=== PATIENT | female | born 1995 | race African-American/Black ===

== ENCOUNTER 2023-12-22 18:03 | Observation (INO) ==
--- NOTE | 2023-12-22 18:17 | ED Triage Note ---
Date of Service December 22, 2023 Provider in Triage Author: Martha Toure History of Present Illness This patient was briefly evaluated while in triage. An abbreviated physical exam was performed. This patient is a 28-year-old Female who presents to the ED for evaluation of fevers and general illness for the past 1.5 weeks. Has not really eating or drinking much. Feels like she is still very dehydrated and very fatigued with headache. Was recently in the ER with low potassium, but blood work otherwise negative. Lyme screening negative. Biofire negative. Group A strep negative. CXR negative. EKG and troponin negative. She did not fill her script for potassium supplement. Physical Exam GENERAL: Non-toxic and in no acute distress. HEENT: Pupils equal. No obvious scleral icterus. HEART: Regular rate and rhythm. LUNGS: Clear to auscultation. No accessory muscle use. ABDOMEN: Soft, minimal tenderness. NEURO: Alert and oriented. No obvious neurological deficits on quick neuro exam. Initial orders for labs and / or imaging were placed and patient was placed in the waiting area until a bed is available. Please see further documentation for the full ED course. MDM / Impression Impression Impression: Febrile illness, Elevated troponin, Tachycardia
[2023-12-22] MEDS: SODIUM CHLORIDE 0.9% 1,000 ML IV ONE (19:15)
[2023-12-22 19:38] LABS: Basophils # (auto) 0.03 K/uL (0.00-0.20); Basophils % (auto) 0.6 %; Hematocrit (blood only) 42.5 % (37.0-47.0); Hemoglobin 14.4 g/dl (12.0-16.0); Immature Granulocytes # (auto) 0.03 K/uL (0.01-0.20); Immature Granulocytes % (auto) 0.6 %; Lymphocytes # (auto) 1.01 K/uL (1.20-3.40); Lymphocytes % (auto) 18.7 %; Mean Corpuscular Hgb Conc 33.9 g/dL (32.0-36.0); Mean Corpuscular Volume 85.5 fL (80.0-100.0); Mean Platelet Volume 11.1 fL (9.4-12.4); Monocytes # (auto) 0.38 K/uL (0.11-0.59); Monocytes % (auto) 7.1 %; Neutrophils # (auto) 3.94 K/uL (1.40-6.50); Platelet Count 180 K/uL (130-400); RDW Coefficient of Variation 12.9 % (11.5-14.5); RDW Standard Deviation 39.8 fL (36.4-46.3); Red Blood Count 4.97 M/uL (4.20-5.40); White Blood Count 5.39 K/ul (4.8-10.8)
--- NOTE | 2023-12-22 19:41 | CT Scan Report ---
CT OF THE HEAD WITHOUT CONTRAST CLINICAL HISTORY: Headache, fatigue. COMPARISON STUDY: No previous studies for comparison. CT DOSE: 1100.35 mGy.cm TECHNIQUE: Helical axial images of the head were obtained without IV contrast. Automated exposure con trol was utilized for the study. A dose lowering technique was utilized adhering to the principles o f ALARA. FINDINGS: No acute intracranial hemorrhage, midline shift or mass effect is present. The ventricular system is unremarkable. The basal cisterns are patent. No extra-axial collections are present. There are no findings to suggest acute dural sinus thrombosis or acute territorial infarct. No significant calvarial abnormalities are present. IMPRESSION: No acute intracranial findings. ACT 112: Negative or not required by law. Electronically signed by: Donn Rahman M.D. 12/22/2023 7:39 PM
[2023-12-22 19:44] LABS: Appearance Urine Clear (Clear); Bacteria Urine Automated None Seen (None Seen); Bilirubin Urine Negative (Negative); Blood Urine Negative (Negative); Cast Urine Automated 0-2 /lpf (0-2); Color Urine Yellow; Epithelial Cell Urine Auto 0-2 /hpf (0-2); Glucose Urine UA Negative (Negative); Ketones Urine Negative (Negative); Leukocyte Esterase Urine Negative (Negative); Nitrite Urine Negative (Negative); Protein Urine Trace (Negative); RBC Urine Automated 0-2 /hpf (0-2); Specific Gravity Urine 1.017 (1.000-1.030); Urobilinogen Urine Negative (Negative); WBC Urine Automated 0-5 /hpf (0-5)
[2023-12-22 19:54] LABS: Alanine Aminotransferase 36 U/L (7-52); Albumin Globulin Ratio 1.3 (0.9-2); Albumin Level 4.5 gm/dl (3.4-5.0); Alkaline Phosphatase 80 U/L (34-104); Anion Gap 8 (3-11); Aspartate Aminotransferase 39 U/L (13-39); BUN Creatinine Ratio 7.4 (10-20); Bilirubin,Total 1.1 mg/dl (0.2-1.0); Blood Urea Nitrogen 8 mg/dl (6-23); Carbon Dioxide 29 mmol/L (21-32); Chloride 99 mmol/L (98-107); Est GFR (African American) 80.9 ml/min; Est GFR (Non-African American) 69.8 ml/min; Globulin 3.6 gm/dl (2.5-4.0); Glucose 96 mg/dl (70-99(Fasting)); Monotest Negative (Negative); Potassium 2.9 mmol/L (3.5-5.1); Pregnancy Test, Serum Negative (Negative); Sodium 136 mmol/L (136-145); Total Protein 8.1 gm/dl (6.0-8.3)
[2023-12-22 20:08] LABS: Thyroid Stimulating Hormone 2.276 uIu/ml (0.300-4.500)
--- NOTE | 2023-12-22 21:03 | Emergency Department Note ---
Impression & Plan Febrile illness, Elevated troponin, Tachycardia ED Provider Note CHIEF COMPLAINT: Illness HISTORY OF PRESENTING ILLNESS: This patient is a 28-year-old Female who presents to the ED for evaluation of fevers and general illness for the past 1.5 weeks. Has not really eating or drinking much, but has been trying to drink pedialyte. Feels like she is still very dehydrated and very fatigued with headache. The headache is in the right front of her head. Has some intermittent abdominal pain with nausea, but no vomiting. Not really coughing and denies sore throat or other URI symptoms. Has some intermittent chest pain, but not really short of breath. Denies urinary symptoms or problems with her BMs. Has not been bit by any ticks. No abnormal rashes or skin lesions. She denies any IV drug use. No known ill contacts, but she was recently at a conference in [facility]. Childhood immunizations are up to date. Had 2 COVID vaccines and had her flu vaccine this year. She was seen in the ER in the head pastry chef of 12/21/2023 with similar symptoms and had a low potassium, but blood work otherwise negative. Procalcitonin normal. Lyme screening negative. Biofire negative. Group A strep negative. CXR negative. EKG and troponin negative. She did not fill her script for potassium supplement. REVIEW OF SYSTEMS: See HPI for pertinent positives and pertinent negatives. ALLERGIES: NKDA MEDICATIONS: Sertraline 100 mg QHS, HCTZ 25 mg QD, Zyrtec or Claritin prn PAST MEDICAL HISTORY: Anxiety, depression, HTN, Allergic Rhinitis. Denies past surgical history. PHYSICAL EXAM: Vital Signs: Vitals are noted on the nurse's note and reviewed by myself. GENERAL: Non toxic in appearance and in no acute distress. SKIN: No obvious abnormal rashes or skin lesions. Capillary reflex less than 2 seconds. HEAD: Normocephalic, atraumatic. EARS: Bilateral external auditory canals clear without tragus tenderness. Bilateral tympanic membranes pearly hodgson without erythema or effusion. No mastoid tenderness bilaterally. EYES: Pupils equal round and reactive to light and accommodation. Conjunctivae without injection, sclerae without icterus. Extraocular movements intact. NOSE: Patent, turbinates inflamed with no discharge. Mild right frontal sinus tenderness. MOUTH: Mucous membranes moist. Airway patent, uvula midline. Pharynx is not erythematous and not edematous without exudate. Pharynx without postnasal drip. No evidence for peritonsillar abscess. NECK: Supple without nuchal rigidity. No lymphadenopathy. Negative Kernig and Brudzinski. HEART: Regular rate and rhythm without murmurs gallops or rubs. LUNGS: Clear to auscultation bilaterally without wheezes, rales or rhonchi. No accessory muscle use or retractions. ABDOMEN: Positive bowel sounds x 4. Normal tympanic percussion. Soft, mild diffuse tenderness to palpation. No masses or organomegaly. NEURO: Patient was alert and oriented. DIFFERENTIAL DIAGNOSIS: Differential diagnosis includes Influenza, RSV, COVID, viral syndrome, otitis media, otitis externa, pharyngitis, strep throat, pneumonia, meningitis, urinary tract infection, cellulitis, abscess, sepsis, bacteremia, acute intra-abdominal etiology, tickborne illness, dehydration, hypokalemia, other electrolyte abnormality, cardiac etiology, as well as other pathologies. ED COURSE AND MEDICAL DECISION MAKING: MONITOR: Continuous nuclear monitoring technician: Order was placed for continuous nuclear monitoring technician. Patient was placed on the nuclear monitoring technician and continuous pulse ox. Patient was noted to be in sinus tachycardia at an initial rate of 118 bpm per my interpretation. EKG: EKG was interpreted by myself as sinus tachycardia at 111 bpm with no acute ST or T wave changes and no significant change from her previous EKG. MEDICATIONS GIVEN: 1 L normal saline solution bolus. Tylenol 1000 mg IV. Potassium K rider and potassium chloride 40 mill equivalents p.o. INTERPRETATION OF LABS: I interpreted the labs with full lab results as below in the lab section of this note. White blood cell count is still normal at 5.39. Hemoglobin normal at 14.4. Platelet count normal at 180. Potassium decreased from 3.1 down to 2.9. Total bilirubin 1.1. Remainder of CMP was unremarkable. Magnesium was normal. TSH was normal. Serum hCG negative. High-sensitivity troponin was initially 21.8 with repeat high-sensitivity troponin of 20.0. Her high-sensitivity troponin the other day was 4.0. Urinalysis without evidence for UTI. Anaplasma Babesia smear negative with DNA PCR still pending. Monoscreen negative. INTERPRETATION OF IMAGING: Imaging studies were interpreted by myself and read by radiology as per the imaging section of this note. CT scan of the head without contrast was negative for acute intracranial abnormalities. CTA of the chest with IV contrast was negative for PE, pneumonia, or other acute abnormalities. CT scan of the abdomen pelvis with IV contrast was negative for acute abnormalities. EXTERNAL RECORDS REVIEWED: I reviewed the patient's ER visit from 12/21/2023 as summarized above. CONSULTATIONS: On-call hospitalist MDM SUMMARY: The patient was seen during a time of extreme volume and extreme acuity. Nursing triage protocols were initiated with IV lock, labs, and/or imaging studies conducted by protocol in the triage area. The patient was initially evaluated in a triage room and sub-waiting room and then re-examined once they were taken back to an exam room. The patient was seen in the emergency department on 12/21/2023 with an extensive workup of her symptoms. The patient had a potassium 3.1, but workup as summarized above was otherwise negative. The patient was given a prescription for potassium supplement, but she states she did not fill it yet. The patient presents today for continued and worsening symptoms. The patient was febrile at 37.6 C. She continued to be tachycardic even after the fever resolved. However, the tachycardia did improve. The patient's potassium is now down to 2.9 and she was given a K rider and oral potassium supplement. The patient's high-sensitivity troponin was normal on 12/21/2023, but is elevated to 21.8 with repeat of 20.0 today. EKG without acute abnormalities. Remainder of the laboratory studies today without acute abnormalities. CT scans of the head without contrast as well as CTA of the chest and CT scan of the abdomen and pelvis with IV contrast were negative for acute abnormalities. Tickborne testing is still pending. The etiology of the patient's fever, tachycardia, and symptoms is uncertain at this time. However, there is concern for possible myocarditis, endocarditis, or pericarditis given her newly elevated troponin, fever, tachycardia, and intermittent chest pain. I had a meaningful discussion about this patient with Dr. Crabtree who agrees with my assessment and the treatment plan. We feel the patient requires admission for further evaluation and treatment of her symptoms. I spoke with the on-call hospitalist who agreed to admit the patient for further management. Please refer to their dictation for further details. The patient's care was transferred in stable condition. DIAGNOSIS: Febrile illness Elevated troponin Tachycardia Past Med/Surg History Family History Mother Breast cancer Aunt Breast cancer Family/Other Breast cancer Grandfather (Paternal) No problems noted. Grandfather (Maternal) Prostate cancer Sister Eczema Denies family history of Ovarian cancer Myocardial infarction Colorectal cancer Social History Smoking Status: Never smoker Preferred Language: Peruvian Feels Safe at Home: Yes Allergies Allergies Allergy/AdvReac Type Severity Reaction Status Date / Time No Known Allergies Allergy Verified 12/22/23 23:33 Home Meds Home Medications Medication Instructions Recorded Confirmed hydrochlorothiazide 25 mg tablet 25 mg PO QAM 06/02/23 12/22/23 sertraline 100 mg tablet 100 mg PO HS 06/02/23 12/22/23 cetirizine 10 mg tablet (Zyrtec) 20 mg PO HS 06/17/23 12/22/23 albuterol sulfate 90 mcg/actuation 2 puff inhalation Q6H PRN Wheezing 12/21/23 12/22/23 aerosol inhaler trazodone 50 mg tablet 50 mg PO HS 12/21/23 12/22/23 Results & Data (ED) Vital Signs Vital Signs - 24 hr 12/22/23 18:26 12/22/23 20:45 12/22/23 21:56 Temperature 37.6 C H Temperature Source Temporal Artery Scan Pulse Rate 118 H 116 H Pulse Rate [Finger] 102 H Pulse Rate from SpO2 Sensor 116 H Pulse Rhythm [Finger] Regular Pulse Strength [Finger] Absent Respiratory Rate 18 17 21 Respiratory Effort / Characteristics Non-Labored Spontaneous Non-Labored Spontaneous Respiratory Depth Normal Normal Respiratory Pattern Regular Blood Pressure 170/123 H Blood Pressure [Left Arm] 188/97 H Blood Pressure Mean 138 Blood Pressure Mean [Left Arm] 127 Blood Pressure Position Sitting Blood Pressure Position [Left Arm] Sitting Pulse Oximetry 98 98 100 Oxygen Delivery Method Room Air Room Air Sepsis Recent Fever Within 48 Hours No Sepsis New/Unexplained Change in Mental Status N/A Sepsis Action Taken by Nursing No Action Required 12/22/23 22:00 12/22/23 22:10 12/22/23 22:20 Temperature Temperature Source Pulse Rate 121 H 112 H 106 H Pulse Rate [Finger] Pulse Rate from SpO2 Sensor 123 H 112 H 106 H Pulse Rhythm [Finger] Pulse Strength [Finger] Respiratory Rate 20 22 20 Respiratory Effort / Characteristics Respiratory Depth Respiratory Pattern Blood Pressure Blood Pressure [Left Arm] Blood Pressure Mean Blood Pressure Mean [Left Arm] Blood Pressure Position Blood Pressure Position [Left Arm] Pulse Oximetry 97 99 Oxygen Delivery Method Sepsis Recent Fever Within 48 Hours Sepsis New/Unexplained Change in Mental Status Sepsis Action Taken by Nursing 12/22/23 22:30 12/22/23 22:37 12/22/23 23:07 Temperature 37.3 C Temperature Source Oral Pulse Rate 102 H Pulse Rate [Finger] Pulse Rate from SpO2 Sensor 102 H Pulse Rhythm [Finger] Pulse Strength [Finger] Respiratory Rate 23 Respiratory Effort / Characteristics Non-Labored Respiratory Depth Normal Respiratory Pattern Blood Pressure Blood Pressure [Left Arm] Blood Pressure Mean Blood Pressure Mean [Left Arm] Blood Pressure Position Blood Pressure Position [Left Arm] Pulse Oximetry 99 Oxygen Delivery Method Room Air Sepsis Recent Fever Within 48 Hours Sepsis New/Unexplained Change in Mental Status Sepsis Action Taken by Nursing 12/22/23 23:32 12/22/23 23:34 12/22/23 23:34 Temperature Temperature Source Pulse Rate Pulse Rate [Finger] Pulse Rate from SpO2 Sensor 96 H 95 H Pulse Rhythm [Finger] Pulse Strength [Finger] Respiratory Rate Respiratory Effort / Characteristics Respiratory Depth Respiratory Pattern Blood Pressure 140/92 Blood Pressure [Left Arm] Blood Pressure Mean 101 Blood Pressure Mean [Left Arm] Blood Pressure Position Blood Pressure Position [Left Arm] Pulse Oximetry 97 97 Oxygen Delivery Method Sepsis Recent Fever Within 48 Hours Sepsis New/Unexplained Change in Mental Status Sepsis Action Taken by Nursing Laboratory Data 12/22/23 19:18 12/22/23 19:18 Lab Results 12/22/23 12/22/23 Range/Units 19:18 23:43 WBC 5.39 (4.8-10.8) K/ul RBC 4.97 (4.20-5.40) M/uL Hgb 14.4 (12.0-16.0) g/dl Hct 42.5 (37.0-47.0) % MCV 85.5 (80.0-100.0) fL MCH 29.0 (25.0-34.0) pg MCHC 33.9 (32.0-36.0) g/dL RDW Std Deviation 39.8 (36.4-46.3) fL RDW Coeff of Rita 12.9 (11.5-14.5) % Plt Count 180 (130-400) K/uL MPV 11.1 (9.4-12.4) fL Immature Gran % (Auto) 0.6 % Neut % (Auto) 73.0 % Lymph % (Auto) 18.7 % Harrison % (Auto) 7.1 % Eos % (Auto) 0.0 % Baso % (Auto) 0.6 % Neut # (Auto) 3.94 (1.40-6.50) K/uL Lymph # (Auto) 1.01 L (1.20-3.40) K/uL Harrison # (Auto) 0.38 (0.11-0.59) K/uL Eos # (Auto) 0.00 (0.00-0.50) K/uL Baso # (Auto) 0.03 (0.00-0.20) K/uL Immature Gran # (Auto) 0.03 (0.01-0.20) K/uL Sodium 136 (136-145) mmol/L Potassium 2.9 L (3.5-5.1) mmol/L Chloride 99 (98-107) mmol/L Carbon Dioxide 29 (21-32) mmol/L Anion Gap 8 (3-11) BUN 8 (6-23) mg/dl Creatinine 1.08 (0.6-1.2) mg/dl Est Cr Clr Drug Dosing Not Reportable Est GFR ( Amer) 80.9 ml/min Est GFR (Non-Af Amer) 69.8 ml/min BUN/Creatinine Ratio 7.4 L (10-20) Glucose 96 (70-99(Fasting)) mg/dl Calcium 9.0 (8.6-10.3) mg/dl Magnesium 2.0 (1.7-2.4) mg/dl Total Bilirubin 1.1 H D (0.2-1.0) mg/dl AST 39 (13-39) U/L ALT 36 (7-52) U/L Alkaline Phosphatase 80 (34-104) U/L Troponin I High Sens 21.8 H D 20.0 H (0-14) pg/ml Total Protein 8.1 (6.0-8.3) gm/dl Albumin 4.5 (3.4-5.0) gm/dl Globulin 3.6 (2.5-4.0) gm/dl Albumin/Globulin Ratio 1.3 (0.9-2) TSH 2.276 (0.300-4.500) uIu/ml HCG, Qual Negative (Negative) Urine Color Yellow Urine Appearance Clear (Clear) Urine pH 8.0 H (4.5-7.5) Ur Specific [place] 1.017 (1.000-1.030) Urine Protein Trace H (Negative) Urine Glucose (UA) Negative (Negative) Urine Ketones Negative (Negative) Urine Blood Negative (Negative) Urine Nitrite Negative (Negative) Urine Bilirubin Negative (Negative) Urine Urobilinogen Negative (Negative) Ur Leukocyte Esterase Negative (Negative) Urine WBC (Auto) 0-5 (0-5) /hpf Urine RBC (Auto) 0-2 (0-2) /hpf U Hyaline Cast (Auto) 0-2 (0-2) /lpf U Epithel Cells (Auto) 0-2 (0-2) /hpf Urine Bacteria (Auto) None Seen (None Seen) Anaplasma Smear See Comment Babesia Smear See Comment Monoscreen Negative (Negative) Administered Medications Discontinued Medications Sodium Chloride (Nss) 1,000 mls @ 999 mls/hr IV .Q1H1M ONE Stop: 12/22/23 19:29 Last Infusion: 12/22/23 23:37 Dose: Infused Documented By: Admin: 12/22/23 19:15 Dose: 999 mls/hr Documented By: ZIA Potassium Chloride (K Santi / Wtr) 10 meq in 100 mls @ 100 mls/hr IV ONE ONE Stop: 12/22/23 22:02 Last Infusion: 12/22/23 23:37 Dose: Infused Documented By: Admin: 12/22/23 21:42 Dose: 100 mls/hr Documented By: WHITNEY Acetaminophen (Ofirmev) 1,000 mg in 100 mls @ 400 mls/hr IV NOW STA Stop: 12/22/23 21:28 Last Infusion: 12/22/23 23:37 Dose: Infused Documented By: Admin: 12/22/23 21:42 Dose: 400 mls/hr Documented By: WHITNEY Ioversol (Optiray 320 125ml) 118 ml IV ONCE ONE Stop: 12/22/23 22:50 Last Admin: 12/22/23 22:49 Dose: 118 ml Documented By: SULLY Potassium Chloride (Potassium Chloride Crtab 20 Meq Tabcr) 40 meq PO NOW STA Stop: 12/22/23 21:04 Last Admin: 12/22/23 21:42 Dose: 40 meq Documented By: WHITNEY Imaging Data Radiologist's Impression: Head CT 12/22/23 18:29 CT OF THE HEAD WITHOUT CONTRAST CLINICAL HISTORY: Headache, fatigue. COMPARISON STUDY: No previous studies for comparison. CT DOSE: 1100.35 mGy.cm TECHNIQUE: Helical axial images of the head were obtained without IV contrast. Automated exposure control was utilized for the study. A dose lowering technique was utilized adhering to the principles of ALARA. FINDINGS: No acute intracranial hemorrhage, midline shift or mass effect is present. The ventricular system is unremarkable. The basal cisterns are patent. No extra-axial collections are present. There are no findings to suggest acute dural sinus thrombosis or acute territorial infarct. No significant calvarial abnormalities are present. IMPRESSION: No acute intracranial findings. ACT 112: Negative or not required by law. Electronically signed by: Donn Rahman M.D. 12/22/2023 7:39 PM Abdomen/Pelvis CT 12/22/23 22:23 Exam(s): CT ABDOMEN + PELVIS With Contrast IV Amt: 118 cc opti 320 EXAM: CT Abdomen and Pelvis With Intravenous Contrast CLINICAL HISTORY: Reason for exam: Abdominal pain, fever. TECHNIQUE: Axial computed tomography images of the abdomen and pelvis with intravenous contrast. CTDI is 28.14 mGy and DLP is 1556.11 mGy-cm. Automated exposure control was utilized for the study. A dose lowering technique was utilized adhering to the principles of ALARA. CONTRAST: Patient received 118 cc opti 320 of IV contrast COMPARISON: No relevant prior studies available. FINDINGS: Lung bases: Unremarkable. No mass. No consolidation. ABDOMEN: Liver: Unremarkable. No mass. Gallbladder and bile ducts: Unremarkable. No calcified stones. No ductal dilation. Pancreas: Unremarkable. No mass. No ductal dilation. Spleen: Unremarkable. No splenomegaly. Adrenals: Unremarkable. No mass. Kidneys and ureters: LEFT pelvic kidney. No hydronephrosis. Stomach and bowel: Unremarkable. No obstruction. No mucosal thickening. PELVIS: Appendix: No findings to suggest acute appendicitis. Bladder: Unremarkable. No mass. Reproductive: Unremarkable as visualized. ABDOMEN and PELVIS: Intraperitoneal space: Unremarkable. No free air. No significant fluid collection. Bones/joints: No acute fracture. No dislocation. Soft tissues: Unremarkable. Vasculature: Unremarkable. No abdominal aortic aneurysm. Lymph nodes: Unremarkable. No enlarged lymph nodes. IMPRESSION: No acute findings in the abdomen or pelvis. Electronically signed by: Heladio Sr MD 12/23/23 00:00 AM Chest CTA 12/22/23 22:23 Exam(s): CTA CHEST IV Amt: 118 cc opti 320 EXAM: CT Angiography Chest With Intravenous Contrast CLINICAL HISTORY: Reason for exam: PE. TECHNIQUE: Axial computed tomographic angiography images of the chest with intravenous contrast. CTDI is 28.14 mGy and DLP is 901.78 mGy-cm. Automated exposure control was utilized for the study. A dose lowering technique was utilized adhering to the principles of ALARA. MIP reconstructed images were created and reviewed. COMPARISON: No relevant prior studies available. FINDINGS: Pulmonary arteries: Unremarkable. No pulmonary embolism. Aorta: No acute findings. No thoracic aortic aneurysm. Lungs: Unremarkable. No mass. No consolidation. Pleural space: Unremarkable. No significant effusion. No pneumothorax. Heart: Unremarkable. No cardiomegaly. No significant pericardial effusion. No evidence of RV dysfunction. Bones/joints: No acute fracture. No dislocation. Soft tissues: Unremarkable. Lymph nodes: Unremarkable. No enlarged lymph nodes. IMPRESSION: Normal chest CTA. No pulmonary embolism. Electronically signed by: Heladio Sr MD 12/22/23 23:44 PM Discharge Plan Visit Data Chief Complaint: Illness ED Provider: Rodri Crabtree ED Midlevel Provider: Martha Toure Discharge Problem: Febrile illness, Elevated troponin, Tachycardia Patient Disposition: Admitted As Inpatient Condition: Good Discharge Instructions Interventions: ED Discharge Assessment Last Done: 12/23/23 02:40
[2023-12-22] MEDS: ACETAMINOPHEN 1,000 MG/100 ML VIAL IV STA (21:42)
[2023-12-22] MEDS: POTASSIUM CHLORIDE CRTAB 20 MEQ TABCR PO STA (21:42)
[2023-12-22] MEDS: POTASSIUM CHLORIDE / WTR 10 MEQ/100 ML PLCT IV ONE (21:42)
[2023-12-22 21:50] LABS: Troponin I High Sensitivity 21.8 pg/ml (0-14)
[2023-12-22] MEDS: OPTIRAY 320 125ml IV ONE (22:49)
--- NOTE | 2023-12-22 23:45 | CT Scan Report ---
Exam(s): CTA CHEST IV Amt: 118 cc opti 320 EXAM: CT Angiography Chest With Intravenous Contrast CLINICAL HISTORY: Reason for exam: PE. TECHNIQUE: Axial computed tomographic angiography images of the chest with intravenous contrast. CTDI is 28.14 mGy and DLP is 901.78 mGy-cm. Automated exposure control was utilized for the study. A dose lowering technique was utilized adhering to the principles of ALARA. MIP reconstructed images were created and reviewed. COMPARISON: No relevant prior studies available. FINDINGS: Pulmonary arteries: Unremarkable. No pulmonary embolism. Aorta: No acute findings. No thoracic aortic aneurysm. Lungs: Unremarkable. No mass. No consolidation. Pleural space: Unremarkable. No significant effusion. No pneumothorax. Heart: Unremarkable. No cardiomegaly. No significant pericardial effusion. No evidence of RV dysfunction. Bones/joints: No acute fracture. No dislocation. Soft tissues: Unremarkable. Lymph nodes: Unremarkable. No enlarged lymph nodes. IMPRESSION: Normal chest CTA. No pulmonary embolism. Electronically signed by: Heladio Sr MD 12/22/23 23:44 PM
--- NOTE | 2023-12-23 00:01 | CT Scan Report ---
Exam(s): CT ABDOMEN + PELVIS With Contrast IV Amt: 118 cc opti 320 EXAM: CT Abdomen and Pelvis With Intravenous Contrast CLINICAL HISTORY: Reason for exam: Abdominal pain, fever. TECHNIQUE: Axial computed tomography images of the abdomen and pelvis with intravenous contrast. CTDI is 28.14 mGy and DLP is 1556.11 mGy-cm. Automated exposure control was utilized for the study. A dose lowering technique was utilized adhering to the principles of ALARA. CONTRAST: Patient received 118 cc opti 320 of IV contrast COMPARISON: No relevant prior studies available. FINDINGS: Lung bases: Unremarkable. No mass. No consolidation. ABDOMEN: Liver: Unremarkable. No mass. Gallbladder and bile ducts: Unremarkable. No calcified stones. No ductal dilation. Pancreas: Unremarkable. No mass. No ductal dilation. Spleen: Unremarkable. No splenomegaly. Adrenals: Unremarkable. No mass. Kidneys and ureters: LEFT pelvic kidney. No hydronephrosis. Stomach and bowel: Unremarkable. No obstruction. No mucosal thickening. PELVIS: Appendix: No findings to suggest acute appendicitis. Bladder: Unremarkable. No mass. Reproductive: Unremarkable as visualized. ABDOMEN and PELVIS: Intraperitoneal space: Unremarkable. No free air. No significant fluid collection. Bones/joints: No acute fracture. No dislocation. Soft tissues: Unremarkable. Vasculature: Unremarkable. No abdominal aortic aneurysm. Lymph nodes: Unremarkable. No enlarged lymph nodes. IMPRESSION: No acute findings in the abdomen or pelvis. Electronically signed by: Heladio Sr MD 12/23/23 00:00 AM
--- NOTE | 2023-12-23 01:42 | History & Physical Report ---
Date of Service December 23, 2023 Assessment & Plan (1) Febrile illness: Plan: 28-year-old female with 1-1/2 weeks of generalized illness. Fever, nausea, headache, lightheadedness. Etiology unclear. No obvious infiltrate on chest x- ray, UA does not suggest infection, respiratory bio fire panel as well as Lyme studies are negative. Patient has had a Monospot and strep test which are negative as well. She is hemodynamically stable and nontoxic in appearance. Observation to medical with telemetry Check ESR, CRP, procalcitonin Check EBV titersmay be more accurate in acute illness Await tickborne labs (anaplasmosis and Babesia DNA) Tylenol as needed for pain or fever (2) Elevated troponin: Plan: Patient denies chest pain. She does have a very mild elevation of troponin = 21.8 which is new from her prior ER visit several days ago. No evidence of ischemia on EKG. Telemetry monitoring Trend troponin Check 2D echo (3) Hypokalemia: Plan: Potassium = 2.9. Likely contributing in part to her generalized weakness and fatigue. She denies diarrhea. Reports that she eats a fairly normal diet. She is on hydrochlorothiazide Aggressive potassium repletion Repeat labs in the morning Check urinary potassium level Hold hydrochlorothiazide (4) Hypertension: Plan: Blood pressure mildly elevated at present. Patient on hydrochlorothiazide which may be contributing to her hypokalemia. Hold hydrochlorothiazide for now Monitor blood pressure Would consider discharge on new agent, possibly amlodipine? (5) Depression: Plan: Chronic. Stable. Continue sertraline 100 mg p.o. nightly. Of note, patient recently increased her sertraline dose to 200 mg a day but thought maybe she was experiencing some side effects with his increased dose therefore it was decreased back to 100 mg/day. Patient reports stable moods History of Present Illness Chief Complaint: Febrile illness Primary Care Provider: DO Rivas Lrfidencio Urbano is a pleasant 28 female with history of hypertension pres enting with 1.5 weeks of not feeling well, generalized illness. Last week she developed nausea, lightheadedness and fatigue/malaise. She was having a difficult time staying awake and going about her daily activities. She tried to stay hydrated with water and Gatorade. Her symptoms persisted and she was seen in the ER on 12/21/2023. She had a largely unremarkable workup. Normal CBC with differential, chemistry panel with hyponatremia (K = 3.1), normal troponin at 4. Respiratory bio fire panel and Lyme disease screening negative. Group A strep and Monospot negative. Chest x-ray unremarkable. She was ultimately discharged home. Patient saw her PCP on 12/22/2023 and was noted to have a fever. She was also having significant dizziness, and felt as though she would pass out when she sat up on the table. Her PCP recommended that she come to the emergency room for further evaluation. In the ER, afebrile, tachycardic, adequate oxygenation on room air. Patient overall feeling well during my encounter. She complains of fever, chills and body shakes as well as intermittent headache, occasional abdominal pain/bloating with excess flatulence) as well as 1 episode of diarrhea in the ER. She denies chest pain, palpitations, cough, vomiting, dysuria, sore throat, neck pain, ear pain. No sick contacts. No recent vaccinations or medication changes. She did just return from [place] where she was at a conference, otherwise no travel. Repeat labs today as below show worsening hypokalemia with K = 2.9 as well as mild elevation of troponin to 21.8. Also with mild elevation of T. bili = 1.1 Allergies Allergy/AdvReac Type Severity Reaction Status Date / Time No Known Allergies Allergy Verified 12/22/23 23:33 Home Medications Medication Instructions Recorded Confirmed Type hydrochlorothiazide 25 mg tablet 25 mg PO QAM 06/02/23 12/22/23 History sertraline 100 mg tablet 100 mg PO HS 06/02/23 12/22/23 History cetirizine 10 mg tablet (Zyrtec) 20 mg PO HS 06/17/23 12/22/23 History albuterol sulfate 90 mcg/actuation 2 puff inhalation Q6H PRN Wheezing 12/21/23 12/22/23 History aerosol inhaler trazodone 50 mg tablet 50 mg PO HS 12/21/23 12/22/23 History Past Med/Surg History Medical History (Updated 12/23/23 @ 03:52 by Anahi Rodriguez DO) Depression Anxiety Hypertension Surgical History (Updated 12/23/23 @ 03:51 by Anahi Rodriguez DO) No significant past surgical history Family History Mother Breast cancer Aunt Breast cancer Family/Other Breast cancer Maternal cousins Grandfather (Paternal) No problems noted. Grandfather (Maternal) Prostate cancer Sister Eczema Denies family history of Ovarian cancer Myocardial infarction Colorectal cancer Social History (Updated 12/23/23 @ 03:51 by Anahi Rodriguez DO) Smoking Status: Never smoker Hx Alcohol Use: No Hx Substance Use: No Preferred Language: Telugu Communication Ability: Effective Tamale Maker Required: No Beliefs That Will Affect Care: None Current Living Situation: Alone [facility] steps to enter Feels Safe at Home: Yes Assistive Devices: Glasses Review of Systems Review of Systems: All systems reviewed & are unremarkable except as noted in HPI & below Physical Exam Physical Exam: General: patient resting comfortably, NAD, non-toxic in appearance, AA&O x 4 Skin: warm, dry, intact, no rashes or lesions HEENT: NC/AT, PERRL, EOMI, anicteric sclera, conjunctiva without injection, external ear normal to inspection and nontender, nares patent, moist mucus membranes, dentition intact, no oropharyngeal lesions, neck supple, trachea midline, no LAD, no thyromegaly, no JVD Heart: +S1/S2, regular, no m/r/g Lungs: equal air entry bilaterally, no rales/rhonchi/wheezes Abd: +BS, soft, NT/ND, no masses/organomegaly/ascites Ext: warm, 2+ pulses in UE/LE bilaterally, no clubbing/cyanosis or edema Neuro: nonfocal, patient AA&O x 4, speech intact, no facial droop, moving all extremities on command with equal strength 5/5 Results & Data Results & Data Vital Signs (Past 12 Hours) Vital Signs Temp Pulse Pulse Resp BP BP Pulse Ox 12/22/23 23:34 140/92 12/22/23 23:34 97 12/22/23 23:32 97 12/22/23 23:07 37.3 C 12/22/23 22:37 12/22/23 22:30 102 H 23 99 12/22/23 22:20 106 H 20 99 12/22/23 22:10 112 H 22 97 12/22/23 22:00 121 H 20 12/22/23 21:56 116 H 21 100 12/22/23 20:45 102 H 17 188/97 H 98 12/22/23 18:26 37.6 C H 118 H 18 170/123 H 98 O2 Del Method 12/22/23 23:34 12/22/23 23:34 12/22/23 23:32 12/22/23 23:07 12/22/23 22:37 Room Air 12/22/23 22:30 12/22/23 22:20 12/22/23 22:10 12/22/23 22:00 12/22/23 21:56 12/22/23 20:45 Room Air 12/22/23 18:26 Room Air Laboratory Results Laboratory Results WBC 5.39 K/ul (4.8-10.8) 12/22/23 19:18 RBC 4.97 M/uL (4.20-5.40) 12/22/23 19:18 Hgb 14.4 g/dl (12.0-16.0) 12/22/23 19:18 Hct 42.5 % (37.0-47.0) 12/22/23 19:18 MCV 85.5 fL (80.0-100.0) 12/22/23 19:18 MCH 29.0 pg (25.0-34.0) 12/22/23 19:18 MCHC 33.9 g/dL (32.0-36.0) 12/22/23 19:18 RDW Std Deviation 39.8 fL (36.4-46.3) 12/22/23 19:18 RDW Coeff of Rita 12.9 % (11.5-14.5) 12/22/23 19:18 Plt Count 180 K/uL (130-400) 12/22/23 19:18 MPV 11.1 fL (9.4-12.4) 12/22/23 19:18 Immature Gran % (Auto) 0.6 % 12/22/23 19:18 Neut % (Auto) 73.0 % 12/22/23 19:18 Lymph % (Auto) 18.7 % 12/22/23 19:18 [place] % (Auto) 7.1 % 12/22/23 19:18 Eos % (Auto) 0.0 % 12/22/23 19:18 Baso % (Auto) 0.6 % 12/22/23 19:18 Neut # (Auto) 3.94 K/uL (1.40-6.50) 12/22/23 19:18 Lymph # (Auto) 1.01 K/uL (1.20-3.40) L 12/22/23 19:18 [place] # (Auto) 0.38 K/uL (0.11-0.59) 12/22/23 19:18 Eos # (Auto) 0.00 K/uL (0.00-0.50) 12/22/23 19:18 Baso # (Auto) 0.03 K/uL (0.00-0.20) 12/22/23 19:18 Immature Gran # (Auto) 0.03 K/uL (0.01-0.20) 12/22/23 19:18 Sodium 136 mmol/L (136-145) 12/22/23 19:18 Potassium 2.9 mmol/L (3.5-5.1) L 12/22/23 19:18 Chloride 99 mmol/L (98-107) 12/22/23 19:18 Carbon Dioxide 29 mmol/L (21-32) 12/22/23 19:18 Anion Gap 8 (3-11) 12/22/23 19:18 BUN 8 mg/dl (6-23) 12/22/23 19:18 Creatinine 1.08 mg/dl (0.6-1.2) 12/22/23 19:18 Est Cr Clr Drug Dosing Not Reportable 12/22/23 19:18 Est GFR ( Amer) 80.9 ml/min 12/22/23 19:18 Est GFR (Non-Af Amer) 69.8 ml/min 12/22/23 19:18 BUN/Creatinine Ratio 7.4 (10-20) L 12/22/23 19:18 Glucose 96 mg/dl (70-99(Fasting)) 12/22/23 19:18 Calcium 9.0 mg/dl (8.6-10.3) 12/22/23 19:18 Magnesium 2.0 mg/dl (1.7-2.4) 12/22/23 19:18 Total Bilirubin 1.1 mg/dl (0.2-1.0) H D 12/22/23 19:18 AST 39 U/L (13-39) 12/22/23 19:18 ALT 36 U/L (7-52) 12/22/23 19:18 Alkaline Phosphatase 80 U/L (34-104) 12/22/23 19:18 Troponin I High Sens 20.0 pg/ml (0-14) H 12/22/23 23:43 Total Protein 8.1 gm/dl (6.0-8.3) 12/22/23 19:18 Albumin 4.5 gm/dl (3.4-5.0) 12/22/23 19:18 Globulin 3.6 gm/dl (2.5-4.0) 12/22/23 19:18 Albumin/Globulin Ratio 1.3 (0.9-2) 12/22/23 19:18 Procalcitonin 0.29 ng/ml (0-0.5) 12/23/23 Unknown TSH 2.276 uIu/ml (0.300-4.500) 12/22/23 19:18 HCG, Qual Negative (Negative) 12/22/23 19:18 Urine Color Yellow 12/22/23 19:18 Urine Appearance Clear (Clear) 12/22/23 19:18 Urine pH 8.0 (4.5-7.5) H 12/22/23 19:18 Ur Specific [place] 1.017 (1.000-1.030) 12/22/23 19:18 Urine Protein Trace (Negative) H 12/22/23 19:18 Urine Glucose (UA) Negative (Negative) 12/22/23 19:18 Urine Ketones Negative (Negative) 12/22/23 19:18 Urine Blood Negative (Negative) 12/22/23 19:18 Urine Nitrite Negative (Negative) 12/22/23 19:18 Urine Bilirubin Negative (Negative) 12/22/23 19:18 Urine Urobilinogen Negative (Negative) 12/22/23 19:18 Ur Leukocyte Esterase Negative (Negative) 12/22/23 19:18 Urine WBC (Auto) 0-5 /hpf (0-5) 12/22/23 19:18 Urine RBC (Auto) 0-2 /hpf (0-2) 12/22/23 19:18 U Hyaline Cast (Auto) 0-2 /lpf (0-2) 12/22/23 19:18 U Epithel Cells (Auto) 0-2 /hpf (0-2) 12/22/23 19:18 Urine Bacteria (Auto) None Seen (None Seen) 12/22/23 19:18 Anaplasma Smear See Comment 12/22/23 19:18 Babesia Smear See Comment 12/22/23 19:18 Monoscreen Negative (Negative) 12/22/23 19:[address] 12/22/23 18:29 CT OF THE HEAD WITHOUT CONTRAST CLINICAL HISTORY: Headache, fatigue. COMPARISON STUDY: No previous studies for comparison. CT DOSE: 1100.35 mGy.cm TECHNIQUE: Helical axial images of the head were obtained without IV contrast. Automated exposure control was utilized for the study. A dose lowering technique was utilized adhering to the principles of ALARA. FINDINGS: No acute intracranial hemorrhage, midline shift or mass effect is present. The ventricular system is unremarkable. The basal cisterns are patent. No extra-axial collections are present. There are no findings to suggest acute dural sinus thrombosis or acute territorial infarct. No significant calvarial abnormalities are present. IMPRESSION: No acute intracranial findings. ACT 112: Negative or not required by law. Electronically signed by: Donn Rahman M.D. 12/22/2023 7:39 PM Abdomen/Pelvis CT 12/22/23 22:23 Exam(s): CT ABDOMEN + PELVIS With Contrast IV Amt: 118 cc opti 320 EXAM: CT Abdomen and Pelvis With Intravenous Contrast CLINICAL HISTORY: Reason for exam: Abdominal pain, fever. TECHNIQUE: Axial computed tomography images of the abdomen and pelvis with intravenous contrast. CTDI is 28.14 mGy and DLP is 1556.11 mGy-cm. Automated exposure control was utilized for the study. A dose lowering technique was utilized adhering to the principles of ALARA. CONTRAST: Patient received 118 cc opti 320 of IV contrast COMPARISON: No relevant prior studies available. FINDINGS: Lung bases: Unremarkable. No mass. No consolidation. ABDOMEN: Liver: Unremarkable. No mass. Gallbladder and bile ducts: Unremarkable. No calcified stones. No ductal dilation. Pancreas: Unremarkable. No mass. No ductal dilation. Spleen: Unremarkable. No splenomegaly. Adrenals: Unremarkable. No mass. Kidneys and ureters: LEFT pelvic kidney. No hydronephrosis. Stomach and bowel: Unremarkable. No obstruction. No mucosal thickening. PELVIS: Appendix: No findings to suggest acute appendicitis. Bladder: Unremarkable. No mass. Reproductive: Unremarkable as visualized. ABDOMEN and PELVIS: Intraperitoneal space: Unremarkable. No free air. No significant fluid collection. Bones/joints: No acute fracture. No dislocation. Soft tissues: Unremarkable. Vasculature: Unremarkable. No abdominal aortic aneurysm. Lymph nodes: Unremarkable. No enlarged lymph nodes. IMPRESSION: No acute findings in the abdomen or pelvis. Electronically signed by: Heladio Sr MD 12/23/23 00:00 AM Chest CTA 12/22/23 22:23 Exam(s): CTA CHEST IV Amt: 118 cc opti 320 EXAM: CT Angiography Chest With Intravenous Contrast CLINICAL HISTORY: Reason for exam: PE. TECHNIQUE: Axial computed tomographic angiography images of the chest with intravenous contrast. CTDI is 28.14 mGy and DLP is 901.78 mGy-cm. Automated exposure control was utilized for the study. A dose lowering technique was utilized adhering to the principles of ALARA. MIP reconstructed images were created and reviewed. COMPARISON: No relevant prior studies available. FINDINGS: Pulmonary arteries: Unremarkable. No pulmonary embolism. Aorta: No acute findings. No thoracic aortic aneurysm. Lungs: Unremarkable. No mass. No consolidation. Pleural space: Unremarkable. No significant effusion. No pneumothorax. Heart: Unremarkable. No cardiomegaly. No significant pericardial effusion. No evidence of RV dysfunction. Bones/joints: No acute fracture. No dislocation. Soft tissues: Unremarkable. Lymph nodes: Unremarkable. No enlarged lymph nodes. IMPRESSION: Normal chest CTA. No pulmonary embolism. Electronically signed by: Heladio Sr MD 12/22/23 23:44 PM PG Care Time/CCT Total # of Minutes Spent Total Time Spent with Patient: Total time spent is greater than 50% in coordination of care (as documented) at patient's floor/unit and/or counseling patient: Coding Level of Care Code 91955 INT INP/OBS CARE 2/55MIN Diagnoses Febrile illness R50.9 Elevated troponin R79.89 Hypokalemia E87.6 Hypertension I10 Hypertension type: primary hypertension Depression F32.A (4) Hypertension Hypertension type: primary hypertension Qualified Code(s): I10 - Essential (primary) hypertension
[2023-12-23] MEDS ORDERED: ALBUTEROL HFA 8 GM INHALER INH PRN (02:40)
[2023-12-23] MEDS: POTASSIUM CHLORIDE CRTAB 20 MEQ TABCR PO STA (03:31)
[2023-12-23] MEDS: LACTATED RINGER'S 1,000 ML IV SCH (03:31)
[2023-12-23 04:24] LABS: C Reactive Protein 2.49 mg/dl (0-0.5)
[2023-12-23 04:47] LABS: Troponin I High Sensitivity 9.2 pg/ml (0-14)
[2023-12-23 09:44] LABS: Influenza A virus by PCR Negative (Neg); Influenza B virus by PCR Negative (Neg); RSV by PCR Negative (Neg); SARS CoV2 RNA(COVID-19) Ceph NEGATIVE (Negative)
--- NOTE | 2023-12-23 12:44 | Electrocardiogram Report ---
Test Reason : Blood Pressure : / mmHG Vent. Rate : 111 BPM Atrial Rate : 111 BPM P-R Int : 134 ms QRS Dur : 074 ms QT Int : 316 ms P-R-T Axes : 044 -17 049 degrees QTc Int : 429 ms Sinus tachycardia Cannot rule out Anterior infarct , age undetermined Abnormal ECG When compared with ECG of 21-DEC-2023 00:10, No significant change was found Confirmed by Rodri Grayson ([id number]) on 12/23/2023 12:43:47 PM Referred By: Teresita Akins Confirmed By:Rodri Grayson
--- NOTE | 2023-12-23 15:01 | Hospitalist Progress Note ---
Date of Service December 23, 2023 Assessment & Plan (1) Febrile illness: Plan: etiology uncertain, but suspect viral pathogen vs tick-borne illness. exam is unremarkable except for tachycardia. thus far the following have been negative - * resp biofire neg on 12/20/23 * repeat COVID/FLU/RSV today neg * u/a neg * cxr neg * CTA chest, CT a/p negative * lyme, anaplasmosis, babesia screens negative * monospot negative previously pending - * EBV titers * anaplasmosis & babesia DNA tests will add - * CMV titers * parvovirus titers * ehrlichia DNA * 2 sets of blood cultures * empiric doxycycline 100mg BID while awaiting tick-borne labs consider - * rickettsial panel other than doxycycline will defer on other antibiotics at this time (2) Elevated troponin: Plan: peak HS trop 21.8 - scantly elevated she has NO cardiac history and NO symptoms to suggest myocarditis or pericarditis this likely represents myocardial demand ischemia in the setting of #1 above troponins have normalized echo returned - normal LV function, normal valves EKG wnl tele with sinus tach but otherwise wnl (3) Hypokalemia: Plan: suspect 2nd to chronic HCTZ use in the setting of poor PO intake x 1 week replaced repeat level this afternoon returned normal at 3.5 hold HCTZ due to dizziness/lightheadedness (4) Hypertension: Plan: has been on HCTZ x 1 year she reports dizziness/lightheadedness she was volume contracted upon admission cont to hold HCTZ due to dehydration & low K check orthostatics now and then qshift hydrate with IV fluids (5) Depression: Plan: Continue sertraline 100 mg daily Of note, patient recently increased her sertraline dose to 200 mg a day but thought maybe she was experiencing some side effects with this increased dose therefore it was decreased back to 100 mg/day (6) Dizziness: Plan: had what sounds like some brief vertigo earlier this week - now resolved most likely she had viral induced inner ear infection causing the vertigo now the dizziness is more of a lightheaded/faint feeling with standing check orthostatics now cont IV fluids echo noted to be normal hold HCTZ (7) SIRS (systemic inflammatory response syndrome): Plan: meets SIRS criteria source for such is uncertain - viral? tick-borne illness? other? cont supportive care, IV fluids, etc. blood cx's obtained x 2 sets today (8) Elevated bilirubin: Plan: minimal elevation in total bili to 1.1 yesterday repeat level today is normal if there was hemolysis from an infection such as babesiosis that could lead to elevation in total bili however, I would expect the bili to cont to be high if that tick-borne disease was indeed present further, H/H remain stable thus, suspicion for babesiosis is very low liver/gall bladder/biliary tree were normal on CT abd/pelvis yesterday (9) DVT prophylaxis: Plan: if patient stays beyond tomorrow would add once daily lovenox (10) Morbid obesity with BMI of 45.0-49.9, adult: Plan: BMI 46 Admission and Anticipated Discharge Date Admission Date: December 23, 2023 Subjective patient sitting in bed comfortably at time of my visit she was awake/alert fiance was at bedside she reports that about 4-5 days before getting ill she had been at a large conference in [place] she also reports that [facility] [employer] [facility] no obvious tick bites, however she has had no obvious sick contacts works at [employer] main complaint is that of dizziness has had this throughout the week some of the dizziness is a lightheaded feeling when it first started she did mention it felt like she was spinning she no longer has a spinning or rotational feeling -- it is a faint feeling has mild headache, off/on chills, and poor appetite no myalgias no joint swelling denies sore throat or URI symptoms no cough/congestion/dyspnea no diarrhea no dysuria Review of Systems Review of Systems: gen - has not noted fever until she was told in the ER she had such cv - no chest pain pulm - no cough GI - no abd pain HENT - no recent dental work Physical Exam Physical Exam: gen - obese, NAD, nontoxic, pleasant mouth - MMM, no lesions, throat clear neck - no JVD, supple, multiple enlarged cervical lymph nodes heart - tachy, s1 s2, no murmur lungs - CTA b/l abd - soft NT ND BS+; no HSM ext - no edema, pulses 2+ b/l musculo - no joint effusions of any large or small joint neuro - strength 5/5 x 4 exts, no facial droop, speech clear skin - no rash Results & Data Results & Data Vital Signs (Past 12 Hours) Vital Signs Temp Pulse Pulse Resp BP Pulse Ox O2 Del Method 12/23/23 14:56 103 H 12/23/23 14:36 103 H 18 150/108 H 12/23/23 11:19 37.6 C 108 H 18 141/100 H 96 Room Air 12/23/23 10:23 112 H 18 156/97 H 12/23/23 07:21 93 H 12/23/23 03:42 Room Air 12/23/23 03:31 98 H 22 146/101 H 97 Room Air Laboratory Results Laboratory Results - last 48 hr 12/22/23 12/22/23 12/23/23 19:18 23:43 03:45 WBC 5.39 RBC 4.97 Hgb 14.4 Hct 42.5 MCV 85.5 MCH 29.0 MCHC 33.9 RDW Std Deviation 39.8 RDW Coeff of Rita 12.9 Plt Count 180 MPV 11.1 Immature Gran % (Auto) 0.6 Neut % (Auto) 73.0 Lymph % (Auto) 18.7 [place] % (Auto) 7.1 Eos % (Auto) 0.0 Baso % (Auto) 0.6 Neut # (Auto) 3.94 Lymph # (Auto) 1.01 L [place] # (Auto) 0.38 Eos # (Auto) 0.00 Baso # (Auto) 0.03 Immature Gran # (Auto) 0.03 ESR 15 Sodium 136 Potassium 2.9 L Chloride 99 Carbon Dioxide 29 Anion Gap 8 BUN 8 Creatinine 1.08 Est Cr Clr Drug Dosing Not Reportable Est GFR ( Amer) 80.9 Est GFR (Non-Af Amer) 69.8 BUN/Creatinine Ratio 7.4 L Glucose 96 Calcium 9.0 Phosphorus 3.0 Magnesium 2.0 Total Bilirubin 1.1 H D AST 39 ALT 36 Alkaline Phosphatase 80 Troponin I High Sens 21.8 H D 20.0 H 9.2 D C-Reactive Protein 2.49 H Total Protein 8.1 Albumin 4.5 Globulin 3.6 Albumin/Globulin Ratio 1.3 Procalcitonin TSH 2.276 HCG, Qual Negative Urine Color Yellow Urine Appearance Clear Urine pH 8.0 H Ur Specific [place] 1.017 Urine Protein Trace H Urine Glucose (UA) Negative Urine Ketones Negative Urine Blood Negative Urine Nitrite Negative Urine Bilirubin Negative Urine Urobilinogen Negative Ur Leukocyte Esterase Negative Urine WBC (Auto) 0-5 Urine RBC (Auto) 0-2 U Hyaline Cast (Auto) 0-2 U Epithel Cells (Auto) 0-2 Urine Bacteria (Auto) None Seen Ur Random Potassium 18.9 Anaplasma Smear See Comment Babesia Smear See Comment SARS-CoV-2 (PCR) Monoscreen Negative Influenza Type A (PCR) Influenza Type B (PCR) RSV (RT-PCR) 12/23/23 12/23/23 12/23/23 08:54 08:56 15:12 Sodium 137 Potassium 3.5 D Chloride 105 Carbon Dioxide 27 Anion Gap 5 BUN 8 Creatinine 0.86 Est Cr Clr Drug Dosing 139.2 Est GFR ( Amer) 106.6 Est GFR (Non-Af Amer) 91.9 BUN/Creatinine Ratio 9.3 L Glucose 101 H Calcium 8.5 L Total Bilirubin 0.8 AST 35 ALT 32 Alkaline Phosphatase 66 Troponin I High Sens 8.4 Total Protein 6.5 Albumin 3.8 Globulin 2.7 Albumin/Globulin Ratio 1.4 SARS-CoV-2 (PCR) NEGATIVE Monoscreen Influenza Type A (PCR) Negative Influenza Type B (PCR) Negative RSV (RT-PCR) Negative 12/23/23 Unknown Procalcitonin 0.[address] 12/22/23 18:29 CT OF THE HEAD WITHOUT CONTRAST CLINICAL HISTORY: Headache, fatigue. COMPARISON STUDY: No previous studies for comparison. CT DOSE: 1100.35 mGy.cm TECHNIQUE: Helical axial images of the head were obtained without IV contrast. Automated exposure control was utilized for the study. A dose lowering technique was utilized adhering to the principles of ALARA. FINDINGS: No acute intracranial hemorrhage, midline shift or mass effect is present. The ventricular system is unremarkable. The basal cisterns are patent. No extra-axial collections are present. There are no findings to suggest acute dural sinus thrombosis or acute territorial infarct. No significant calvarial abnormalities are present. IMPRESSION: No acute intracranial findings. ACT 112: Negative or not required by law. Electronically signed by: Donn Rahman M.D. 12/22/2023 7:39 PM Abdomen/Pelvis CT 12/22/23 22:23 Exam(s): CT ABDOMEN + PELVIS With Contrast IV Amt: 118 cc opti 320 EXAM: CT Abdomen and Pelvis With Intravenous Contrast CLINICAL HISTORY: Reason for exam: Abdominal pain, fever. TECHNIQUE: Axial computed tomography images of the abdomen and pelvis with intravenous contrast. CTDI is 28.14 mGy and DLP is 1556.11 mGy-cm. Automated exposure control was utilized for the study. A dose lowering technique was utilized adhering to the principles of ALARA. CONTRAST: Patient received 118 cc opti 320 of IV contrast COMPARISON: No relevant prior studies available. FINDINGS: Lung bases: Unremarkable. No mass. No consolidation. ABDOMEN: Liver: Unremarkable. No mass. Gallbladder and bile ducts: Unremarkable. No calcified stones. No ductal dilation. Pancreas: Unremarkable. No mass. No ductal dilation. Spleen: Unremarkable. No splenomegaly. Adrenals: Unremarkable. No mass. Kidneys and ureters: LEFT pelvic kidney. No hydronephrosis. Stomach and bowel: Unremarkable. No obstruction. No mucosal thickening. PELVIS: Appendix: No findings to suggest acute appendicitis. Bladder: Unremarkable. No mass. Reproductive: Unremarkable as visualized. ABDOMEN and PELVIS: Intraperitoneal space: Unremarkable. No free air. No significant fluid collection. Bones/joints: No acute fracture. No dislocation. Soft tissues: Unremarkable. Vasculature: Unremarkable. No abdominal aortic aneurysm. Lymph nodes: Unremarkable. No enlarged lymph nodes. IMPRESSION: No acute findings in the abdomen or pelvis. Electronically signed by: Heladio Sr MD 12/23/23 00:00 AM Chest CTA 12/22/23 22:23 Exam(s): CTA CHEST IV Amt: 118 cc opti 320 EXAM: CT Angiography Chest With Intravenous Contrast CLINICAL HISTORY: Reason for exam: PE. TECHNIQUE: Axial computed tomographic angiography images of the chest with intravenous contrast. CTDI is 28.14 mGy and DLP is 901.78 mGy-cm. Automated exposure control was utilized for the study. A dose lowering technique was utilized adhering to the principles of ALARA. MIP reconstructed images were created and reviewed. COMPARISON: No relevant prior studies available. FINDINGS: Pulmonary arteries: Unremarkable. No pulmonary embolism. Aorta: No acute findings. No thoracic aortic aneurysm. Lungs: Unremarkable. No mass. No consolidation. Pleural space: Unremarkable. No significant effusion. No pneumothorax. Heart: Unremarkable. No cardiomegaly. No significant pericardial effusion. No evidence of RV dysfunction. Bones/joints: No acute fracture. No dislocation. Soft tissues: Unremarkable. Lymph nodes: Unremarkable. No enlarged lymph nodes. IMPRESSION: Normal chest CTA. No pulmonary embolism. Electronically signed by: Heladio Sr MD 12/22/23 23:44 PM PG Care Time/CCT Total # of Minutes Spent Total Time Spent with Patient: Total time spent is greater than 50% in coordination of care (as documented) at patient's floor/unit and/or counseling patient: Coding Level of Care Code 05825 SUB INP/OBS CARE 3/50MIN Diagnoses Febrile illness R50.9 Elevated troponin R79.89 Hypokalemia E87.6 Hypertension I10 Hypertension type: primary hypertension Depression F32.A Dizziness R42 SIRS (systemic inflammatory response syndrome) R65.10 Elevated bilirubin R17 DVT prophylaxis Z29.9 Morbid obesity with BMI of 45.0-49.9, adult E66.01; Z68.42 (4) Hypertension Hypertension type: primary hypertension Qualified Code(s): I10 - Essential (primary) hypertension
--- NOTE | 2023-12-23 15:09 | XCELERA ---
[id number]
[2023-12-23 15:49] LABS: Albumin Globulin Ratio 1.4 (0.9-2); Albumin Level 3.8 gm/dl (3.4-5.0); BUN Creatinine Ratio 9.3 (10-20); Bilirubin,Total 0.8 mg/dl (0.2-1.0); Calcium 8.5 mg/dl (8.6-10.3); Creatinine Clr Calc Pharmacy 139.2 ml/min; Est GFR (African American) 106.6 ml/min; Est GFR (Non-African American) 91.9 ml/min; Globulin 2.7 gm/dl (2.5-4.0); Potassium 3.5 mmol/L (3.5-5.1); Total Protein 6.5 gm/dl (6.0-8.3)
[2023-12-23] MEDS: DOXYCYCLINE HYCLATE 100 MG CAP PO SCH (16:48)
[2023-12-23] MEDS: ACETAMINOPHEN 325 MG TAB PO PRN (21:36)
[2023-12-23] MEDS: SERTRALINE HCL 100 MG TABLET PO SCH (21:37)
[2023-12-23] MEDS: CETIRIZINE HCL 10 MG TABLET PO SCH (21:37)
[2023-12-23] MEDS: ONDANSETRON INJ 2 MG/ML 2 ML VIAL IV PRN (21:37)
[2023-12-23] MEDS: PROMETHAZINE HCL INJ 25 MG/ML 1 ML VIAL IM STA (22:59)
[2023-12-23] MEDS: PROMETHAZINE HCL 25 MG TAB PO ONE (23:27)
[2023-12-23] MEDS: LACTATED RINGER'S 500 ML IV ONE (23:28)
[2023-12-24 04:34] LABS: Hematocrit (blood only) 37.3 % (37.0-47.0); Hemoglobin 12.7 g/dl (12.0-16.0); Mean Corpuscular Hemoglobin 29.5 pg (25.0-34.0); Mean Corpuscular Volume 86.7 fL (80.0-100.0); Mean Platelet Volume 11.3 fL (9.4-12.4); Platelet Count 173 K/uL (130-400); RDW Coefficient of Variation 13.1 % (11.5-14.5); RDW Standard Deviation 41.1 fL (36.4-46.3); White Blood Count 3.72 K/ul (4.8-10.8)
[2023-12-24 04:52] LABS: BUN Creatinine Ratio 10.2 (10-20); Creatinine Clr Calc Pharmacy 122.2 ml/min; Est GFR (Non-African American) 78.5 ml/min; Potassium 3.9 mmol/L (3.5-5.1)
[2023-12-24] MEDS: amLODIPine BESYLATE 5 MG TAB PO SCH (09:28)
--- NOTE | 2023-12-24 15:14 | Discharge Summary ---
Date of Service December 24, 2023 Admission HPI Per Admitting Provider Adelita Urbano is a pleasant 28 female with history of hypertension presenting with 1.5 weeks of not feeling well, generalized illness. Last week she developed nausea, lightheadedness and fatigue/malaise. She was having a difficult time staying awake and going about her daily activities. She tried to stay hydrated with water and Gatorade. Her symptoms persisted and she was seen in the ER on 12/21/2023. She had a largely unremarkable workup. Normal CBC with differential, chemistry panel with hyponatremia (K = 3.1), normal troponin at 4. Respiratory bio fire panel and Lyme disease screening negative. Group A strep and Monospot negative. Chest x-ray unremarkable. She was ultimately discharged home. Patient saw her PCP on 12/22/2023 and was noted to have a fever. She was also having significant dizziness, and felt as though she would pass out when she sat up on the table. Her PCP recommended that she come to the emergency room for further evaluation. In the ER, afebrile, tachycardic, adequate oxygenation on room air. Patient overall feeling well during my encounter. She complains of fever, chills and body shakes as well as intermittent headache, occasional abdominal pain/bloating with excess flatulence) as well as 1 episode of diarrhea in the ER. She denies chest pain, palpitations, cough, vomiting, dysuria, sore throat, neck pain, ear pain. No sick contacts. No recent vaccinations or medication changes. She did just return from [place] where she was at a conference, otherwise no travel. Repeat labs today as below show worsening hypokalemia with K = 2.9 as well as mild elevation of troponin to 21.8. Also with mild elevation of T. bili = 1.1 Principal Diagnosis Fever, resolved. Likely viral syndrome Discharge Exam PHYSICAL EXAMINATION Last 24h vital signs reviewed, see documentation in flowsheet General: comfortable appearing, no distress HEENT: Normocephalic, atraumatic, pupils round and equal, sclerae anicteric, no conjunctival injection, moist mucus membranes Lungs: Normal respiratory effort. Clear to auscultation bilaterally. No RRW Heart: Regular rate and rhythm, no murmurs. No JVD Abdomen: Soft, nontender, nondistended. Bowel sounds present. Extremities: Warm, dry, well-perfused. No extremity edema. Neuro: Alert and oriented x 4, face symmetric, moves 4 extremities well Psych: Normal affect and behavior Discharge Data Allergies Allergy/AdvReac Type Severity Reaction Status Date / Time No Known Allergies Allergy Verified 12/22/23 23:33 Consultations 12/23/23 01:13 ED Decision to Admit Stat Ordered Studies 12/22/23 18:29 CT head/brain wo con Stat 12/22/23 22:23 CT abd pelvis IV con only Stat CT angio chest PE protocol Stat Head CT 12/22/23 18:29 CT OF THE HEAD WITHOUT CONTRAST CLINICAL HISTORY: Headache, fatigue. COMPARISON STUDY: No previous studies for comparison. CT DOSE: 1100.35 mGy.cm TECHNIQUE: Helical axial images of the head were obtained without IV contrast. Automated exposure control was utilized for the study. A dose lowering technique was utilized adhering to the principles of ALARA. FINDINGS: No acute intracranial hemorrhage, midline shift or mass effect is present. The ventricular system is unremarkable. The basal cisterns are patent. No extra-axial collections are present. There are no findings to suggest acute dural sinus thrombosis or acute territorial infarct. No significant calvarial abnormalities are present. IMPRESSION: No acute intracranial findings. ACT 112: Negative or not required by law. Electronically signed by: Donn Rahman M.D. 12/22/2023 7:39 PM Abdomen/Pelvis CT 12/22/23 22:23 Exam(s): CT ABDOMEN + PELVIS With Contrast IV Amt: 118 cc opti 320 EXAM: CT Abdomen and Pelvis With Intravenous Contrast CLINICAL HISTORY: Reason for exam: Abdominal pain, fever. TECHNIQUE: Axial computed tomography images of the abdomen and pelvis with intravenous contrast. CTDI is 28.14 mGy and DLP is 1556.11 mGy-cm. Automated exposure control was utilized for the study. A dose lowering technique was utilized adhering to the principles of ALARA. CONTRAST: Patient received 118 cc opti 320 of IV contrast COMPARISON: No relevant prior studies available. FINDINGS: Lung bases: Unremarkable. No mass. No consolidation. ABDOMEN: Liver: Unremarkable. No mass. Gallbladder and bile ducts: Unremarkable. No calcified stones. No ductal dilation. Pancreas: Unremarkable. No mass. No ductal dilation. Spleen: Unremarkable. No splenomegaly. Adrenals: Unremarkable. No mass. Kidneys and ureters: LEFT pelvic kidney. No hydronephrosis. Stomach and bowel: Unremarkable. No obstruction. No mucosal thickening. PELVIS: Appendix: No findings to suggest acute appendicitis. Bladder: Unremarkable. No mass. Reproductive: Unremarkable as visualized. ABDOMEN and PELVIS: Intraperitoneal space: Unremarkable. No free air. No significant fluid collection. Bones/joints: No acute fracture. No dislocation. Soft tissues: Unremarkable. Vasculature: Unremarkable. No abdominal aortic aneurysm. Lymph nodes: Unremarkable. No enlarged lymph nodes. IMPRESSION: No acute findings in the abdomen or pelvis. Electronically signed by: Heladio Sr MD 12/23/23 00:00 AM Chest CTA 12/22/23 22:23 Exam(s): CTA CHEST IV Amt: 118 cc opti 320 EXAM: CT Angiography Chest With Intravenous Contrast CLINICAL HISTORY: Reason for exam: PE. TECHNIQUE: Axial computed tomographic angiography images of the chest with intravenous contrast. CTDI is 28.14 mGy and DLP is 901.78 mGy-cm. Automated exposure control was utilized for the study. A dose lowering technique was utilized adhering to the principles of ALARA. MIP reconstructed images were created and reviewed. COMPARISON: No relevant prior studies available. FINDINGS: Pulmonary arteries: Unremarkable. No pulmonary embolism. Aorta: No acute findings. No thoracic aortic aneurysm. Lungs: Unremarkable. No mass. No consolidation. Pleural space: Unremarkable. No significant effusion. No pneumothorax. Heart: Unremarkable. No cardiomegaly. No significant pericardial effusion. No evidence of RV dysfunction. Bones/joints: No acute fracture. No dislocation. Soft tissues: Unremarkable. Lymph nodes: Unremarkable. No enlarged lymph nodes. IMPRESSION: Normal chest CTA. No pulmonary embolism. Electronically signed by: Heladio Sr MD 12/22/23 23:44 PM 12/24/23 03:20 12/24/23 03:27 Hospital Course (1) Febrile illness: etiology uncertain, but suspect viral pathogen vs tick-borne illness. thus far the following have been negative - * resp biofire neg on 12/20/23 * repeat COVID/FLU/RSV today neg * u/a neg * cxr neg * CTA chest, CT a/p negative * lyme, anaplasmosis, babesia screens negative * monospot negative pending - * EBV, CMV, parvovirus titers * anaplasmosis ehrlichia & babesia DNA tests * 2 sets of blood cultures No fever x 48h as of morning of 12/23 and she feels much better, desires to go home. Tachycardia improved. * empiric doxycycline 100mg BID while awaiting tick-borne labs * will call her if any of the above studies result positive * she will follow up with her PCP (2) Elevated troponin: peak HS trop 21.8 - scantly elevated she has NO cardiac history and NO symptoms to suggest myocarditis or pericarditis this likely represents myocardial demand ischemia in the setting of #1 above troponins have normalized echo returned - normal LV function, normal valves EKG wnl tele with sinus tach but otherwise wnl (3) Hypokalemia: suspect 2nd to chronic HCTZ use in the setting of poor PO intake x 1 week replaced (4) Hypertension: has been on HCTZ x 1 year she reports dizziness/lightheadedness she was volume contracted upon admission cont to hold HCTZ due to dehydration & low K replaced HCTZ with amlodipine 5 mg. Was hypertensive throughout hospital stay and this will likely need dose increase in future -she will follow up in primary care (5) Depression: Continue sertraline 100 mg daily Of note, patient recently increased her sertraline dose to 200 mg a day but thought maybe she was experiencing some side effects with this increased dose therefore it was decreased back to 100 mg/day (6) Dizziness: had what sounds like some brief vertigo earlier this week - now resolved most likely she had viral induced inner ear infection causing the vertigo (7) SIRS (systemic inflammatory response syndrome): met SIRS criteria source for such is uncertain - viral? tick-borne illness? other? (8) Elevated bilirubin: minimal elevation in total bili to 1.1, resolved on follow up labs liver/gall bladder/biliary tree were normal on CT abd/pelvis (9) Morbid obesity with BMI of 45.0-49.9, adult: BMI 46 Total Time Total Time Spent Total Time Spent (In Minutes): 25 minutes Discharge Plan Discharge Items Patient Disposition: Home - Self-Care Reason For Visit: WEAKNESS, FEVER Discharge Diagnosis: Fever, probably due to viral syndrome Condition on Discharge: Good Activity: Resume your previous activity Non-emergency contact: Primary Care Provider Call non-emergency contact if: you have any medication questions, your symptoms worsen and your temperature is above 101 Follow-up/Referrals: Mónica Ngo DO [Primary Care Provider] - Diet: Regular Addtl Attending Provider Instructions: Your fever has not recurred for the last 48h. Despite extensive testing we did not determine the exact cause. Most fevers like this are viral in origin and resolve on their own. I prescribed a course of doxycycline (to complete a total 10 day course) in case it was a tick-borne infection. DNA tests for babesiosis, anaplasmosis, ehlichiosis are still pending. Lyme testing was negative. Tests are still pending for EBV and CMV viruses, which cause "mono," and parvovirus - these resolve without specific treatment Blood cultures are pending - these look for bacteria in the bloodstream. These don't finalize for five days. There is a small chance we could have to call you back to the hospital for antibiotics if blood cultures turn positive for concerning bacteria. I think you are low risk to have a bloodstream infection, so this is unlikely. We will call you if one of these tests are positive. You had low blood potassium from low oral intake and HCTZ, your blood pressure medicine. Your BP was high in the hospital. I changed your BP medicine to amlodipine - dose will likely need to be increased in the future. Follow up with Dr. Ngo for this within the next few weeks. It was a pleasure seeing you in the hospital, Kelsey Julio MD Pending Studies at Discharge: Yes Stand-Alone Forms: My [facility], Smoking Cessation Medications and DC Order Prescriptions: New doxycycline hyclate 100 mg Capsule 100 mg PO Q12H Qty: 17 0RF amlodipine [Norvasc] 5 mg Tablet 5 mg PO QAM Qty: 30 0RF Continued cetirizine [Zyrtec] 10 mg tablet 20 mg PO HS sertraline 100 mg tablet 100 mg PO HS trazodone 50 mg tablet 50 mg PO HS albuterol sulfate 90 mcg/actuation HFA aerosol inhaler 2 puff INHALATION Q6H PRN (Reason: Wheezing) Discontinued hydrochlorothiazide 25 mg tablet 25 mg PO QAM Discharge Orders: Discharge Order (Routine); Ordered 12/24/23 Ordered By: Kelsey Julio Admission Data Admit Date/Time: 12/23/23 01:41 Attending Provider: Kelsey Julio Admit Provider: Anahi Rodriguez Primary Care Provider: Mónica Ngo Other Providers: Anahi Rodriguez Other Interventions: Discharge Summary Assessment (RN) Last Done: 12/24/23 10:31 Coding Level of Care Code 56338 IN/OBS DISCH 30 MIN/LESS Diagnoses Febrile illness R50.9 Elevated troponin R79.89 Hypokalemia E87.6 Hypertension I10 Hypertension type: primary hypertension Depression F32.A Dizziness R42 SIRS (systemic inflammatory response syndrome) R65.10 Elevated bilirubin R17 Morbid obesity with BMI of 45.0-49.9, adult E66.01; Z68.42
[2023-12-26 15:03] LABS: EBV Nuclear Ag Antibody <18.00 U/mL; EBV Virus Capsid Ag IgG Ab <18.00 U/mL; Epstein Barr Virus Early Ag Ab <9.00 U/mL
[2023-12-27 00:03] LABS: Babesia microti DNA Not Detected (Not Detected)
[2023-12-27 17:37] LABS: CMV IgG Antibody <0.60 U/mL; CMV IgM Antibody <30.00 AU/mL; Parvovirus IgG 0.2 (<0.9); Parvovirus IgM 0.2 (<0.9)
[2023-12-28 13:08] LABS: Ehrlichia chaff DNA Bld Negative (Negative)
== END 2023-12-24 12:17 | disposition home or self-care (01) | DRG 866 ==
LOC: ED 18:03 → INTOOBSV 12-23 01:41 → SUATTDRO 12-23 01:41 → EDINP 12-23 01:41 → 2W 12-23 02:40